=== PATIENT | female | born 1970 | race Caucasian/White ===

== ENCOUNTER → 2017-07-10 | Outpatient (CLI) | payer OTHER ==
[~2017-07-10] MED LIST: MOBIC15 MG PO; Metoprolol; SKELAXIN 800 M800 M1 PO; ranitidine; zyrtec
[2017-07-10 07:40] LABS: ABSOLUTE EOSINOPHILS 0.1 thou/uL (0.0-0.7); ABSOLUTE LYMPHOCYTES 1.8 thou/uL (0.8-5.3); ABSOLUTE MONOCYTES 0.4 thou/uL (0.0-1.2); ABSOLUTE NEUTROPHILS 3.9 thou/uL (1.6-8.1); BASOPHILS 0.4 %; EOSINOPHILS 2.2 %; HEMATOCRIT 42.7 % (37.0-47.0); HEMOGLOBIN 14.1 gm/dL (12.0-15.0); LYMPHOCYTES 28.3 %; MCHC 33.1 g/dL (28.0-37.0); MCV 90.8 fL (80.0-100.0); MONOCYTES 6.3 %; MPV 7.4 fl. (7.2-11.1); NUCLEATED RBCS 0 /100WBC; PLATELET COUNT* 249 thou/uL (150-400); POLYS 62.8 %; RBC 4.71 mil/uL (4.20-5.00); RDW-CV 12.8 % (10.5-14.5); WBC 6.2 thou/uL (4.0-11.0)
[2017-07-10 07:53] LABS: URINE BILIRUBIN NEGATIVE (Negative); URINE BLOOD 1+ (Negative); URINE CLARITY CLEAR; URINE COLOR STRAW; URINE GLUCOSE-RANDOM NEGATIVE (Negative); URINE KETONES NEGATIVE (Negative); URINE LEUKOCYTES NEGATIVE (Negative); URINE NITRITE NEGATIVE (Negative); URINE PROTEIN NEGATIVE (Negative); URINE SPECIFIC GRAVITY >= 1.030 (1.005-1.030); URINE UROBILINOGEN 0.2 E.U./dl (0.2-1.0)
[2017-07-10 08:04] LABS: ALBUMIN 3.7 g/dL (3.4-5.0); ALKALINE PHOSPHATASE 56 U/L (46-116); ANION GAP 8 mmol/L (7-16); BUN 14 mg/dL (7-18); CALCIUM 8.9 mg/dL (8.5-10.1); CHLORIDE 106 mmol/L (98-107); CHOLESTEROL 197 mg/dL (<200); CO2 27 mmol/L (21-32); CREATININE 0.7 mg/dL (0.6-1.3); GLUCOSE 94 mg/dL (70-99); HDL CHOLESTEROL 67 mg/dL (>40); LDL CHOLESTEROL 110 mg/dL (<100); POTASSIUM 4.4 mmol/L (3.5-5.1); SERUM ASSESSMENT Clear; SGOT 17 U/L (15-37); SGPT 22 U/L (30-65); SODIUM 141 mmol/L (136-145); TC:HDL 2.9 Ratio (Not establshd); TOTAL BILIRUBIN 0.4 mg/dL (<0.1-1.0); TOTAL PROTEIN 7.2 g/dL (6.4-8.2); TRIGLYCERIDE 101 mg/dL (<150); VLDL 20 mg/dL (<40)
[2017-07-10 08:26] LABS: CASTS None Seen /LPF (None Seen); CRYSTALS None Seen /LPF (None Seen); MUCUS 0-3 Light strn/LPF (None Seen); SQUAMOUS 4-10 Moderate /LPF (0-3); URINE RBC 0-2 Rare /HPF (0-2); URINE WBC None Seen /HPF (0-5)
== END ==
LOC: M.LAB 07:18
PROVIDERS: Obstetrics & Gynecology
DX: Z00.01 Encounter for general adult medical examination with abnormal findings (principal)

== ENCOUNTER → 2017-07-25 | Outpatient (CLI) | payer OTHER | LOC: M.RAD 06:51 | DX: Z12.31 Encounter for screening mammogram for malignant neoplasm of breast (principal) ==

== ENCOUNTER → 2017-11-29 | Outpatient (CLI) | payer OTHER ==
[2017-11-29 21:07] LABS: THYROID PEROXIDASE (TPO) AB 10 IU/mL (0-34)
== END ==
LOC: M.LAB 09:29
PROVIDERS: Internal Medicine
DX: R53.1 Weakness (principal)